=== PATIENT | female | born 1985 | race Caucasian/White ===

== ENCOUNTER → 2016-12-06 | Outpatient (CLI) | payer BC, OTHER ==
[~2016-12-06] MED LIST: PRENTAB26 PO
== END | disposition home or self-care (01) ==
LOC: C.PAPS 16:53
PROVIDERS: ATTEND Physician Assistant
DX: Z01.419 Encounter for gynecological examination (general) (routine) without abnormal findings (principal)

== ENCOUNTER → 2017-01-31 | Outpatient (CLI) | payer OTHER ==
[2017-01-31 15:40] LABS: BASO % 0.4 %; BASO ABS # 0.03 K/uL (0-0.2); COMPLETE YES; EOS % 0.2 %; HEMATOCRIT 38.3 % (37-47); LYMPH % 21.2 %; LYMPH ABS # 1.76 K/uL (1.2-3.4); MEAN CELL VOLUME 88.2 fL (80-100); MEAN CORPUSCULAR HEMOGLOBIN 30.6 pg (25-34); MEAN CORPUSCULAR HGB CONC 34.7 g/dl (32-36); MEAN PLATELET VOLUME 9.6 fL (7.4-10.4); MONO % 6.2 %; PLATELET COUNT 251 K/uL (130-400); RED BLOOD COUNT 4.34 M/uL (4.2-5.4); WHITE BLOOD COUNT 8.29 K/uL (4.8-10.8)
[2017-01-31 18:02] LABS: URINE APPEARANCE CLEAR (CLEAR); URINE BILIRUBIN NEG (NEG); URINE COLOR YELLOW; URINE NITRITE NEG (NEG); URINE SPECIFIC GRAVITY 1.013 (1.000-1.030); UROBILINOGEN NEG (NEG)
[2017-01-31 18:09] LABS: MANUAL MICROSCOPIC REQUIRED? NO; REVIEW REQ? NO
[2017-02-03 13:35] LABS: CHLAMYDIA TRACH RNA*** NOT DETECTED (NOT DETECTED); GC (NEIS GONORRHOEAE)RNA** NOT DETECTED (NOT DETECTED)
== END | disposition home or self-care (01) ==
LOC: C.LAB1850 14:50
PROVIDERS: ATTEND Obstetrics & Gynecology
DX: Z34.81 Encounter for supervision of other normal pregnancy, first trimester (principal)

== ENCOUNTER → 2017-02-22 | Outpatient (CLI) | payer OTHER ==
[2017-02-22 14:53] LABS: ALT/SGPT 17 U/L (12-78); AST/SGOT 11 U/L (15-37); BLOOD UREA NITROGEN 14 mg/dl (7-18); CALCIUM 8.7 mg/dl (8.5-10.1); CARBON DIOXIDE 25 mmol/L (21-32); CHLORIDE 108 mmol/L (98-107); GLUCOSE 75 mg/dl (70-99); POTASSIUM 3.8 mmol/L (3.5-5.1); SODIUM 140 mmol/L (136-145)
[2017-02-22 14:56] LABS: ALB/GLOB RATIO 1.2 (0.9-2); ALKALINE PHOSPHATASE 48 U/L (45-117)
[2017-02-22 15:02] LABS: URINE TOTAL PROTEIN < 5.0 mg/dl (0-11.9)
[2017-02-22 21:12] LABS: URINE COLLECTION TIME 24 HOURS; URINE TOTAL PROTEIN CALC < 80.0 mg/24 hr (0-149.1)
== END | disposition home or self-care (01) ==
LOC: C.LAB1850 12:26
PROVIDERS: ATTEND Obstetrics & Gynecology
DX: E72.12 Methylenetetrahydrofolate reductase deficiency (principal)

== ENCOUNTER → 2017-03-14 | Outpatient (CLI) | payer OTHER ==
[2017-03-14 18:41] LABS: GTGD 50 Grams
[2017-03-17 16:24] LABS: AFP CONCENTRATION 51.3 NG/ML; AFP MULTIPLE OF MEDIAN 1.26; AFPTS GESTATIONAL AGE 16.1 WEEKS; AFPTS INSULIN DEP DIABETIC? NO; AFPTS MATERNAL WT 112 LBS; ALPHA-FETOPROTEIN RACE CAUCASIAN=W; HISTORY OF NTD NO; REPEAT SAMPLE? NO
== END | disposition home or self-care (01) ==
LOC: C.LAB1850 15:35
PROVIDERS: ATTEND Obstetrics & Gynecology
DX: Z34.82 Encounter for supervision of other normal pregnancy, second trimester (principal)

== ENCOUNTER → 2017-06-06 | Outpatient (CLI) | payer OTHER ==
[2017-06-06 18:18] LABS: URINE APPEARANCE CLEAR (CLEAR); URINE BILIRUBIN NEG (NEG); URINE COLOR YELLOW; URINE EPITHELIAL CELL AUTO 20-30 /lpf (0-5); URINE NITRITE NEG (NEG); URINE PH 7.5 (4.5-7.5); URINE SPECIFIC GRAVITY 1.012 (1.000-1.030); UROBILINOGEN NEG (NEG)
[2017-06-06 18:21] LABS: MANUAL MICROSCOPIC REQUIRED? NO; REVIEW REQ? NO
== END | disposition home or self-care (01) ==
LOC: C.LABSPEC 17:52
PROVIDERS: ATTEND Obstetrics & Gynecology
DX: Z34.82 Encounter for supervision of other normal pregnancy, second trimester (principal)

== ENCOUNTER → 2017-08-16 | Outpatient (CLI) | payer OTHER ==
[2017-08-16 14:36] LABS: HEMATOCRIT 38.7 % (37-47); HEMOGLOBIN 13.8 g/dL (12.0-16.0); MEAN CELL VOLUME 88.4 fL (80-100); MEAN CORPUSCULAR HEMOGLOBIN 31.5 pg (25-34); MEAN PLATELET VOLUME 10.5 fL (7.4-10.4); PLATELET COUNT 236 K/uL (130-400); RED CELL DISTRIBUTION WIDTH CV 13.3 % (11.5-14.5); RED CELL DISTRIBUTION WIDTH SD 43.6 fL (36.4-46.3); WHITE BLOOD COUNT 7.58 K/uL (4.8-10.8)
[2017-08-16 14:53] LABS: MEAN CORPUSCULAR HGB CONC 35.7 g/dl (32-36)
[2017-08-16 14:59] LABS: ALBUMIN 2.8 gm/dl (3.4-5.0); ALKALINE PHOSPHATASE 162 U/L (45-117); ALT/SGPT 17 U/L (12-78); AST/SGOT 18 U/L (15-37); BLOOD UREA NITROGEN 13 mg/dl (7-18); CALCIUM 8.9 mg/dl (8.5-10.1); CARBON DIOXIDE 24 mmol/L (21-32); CREATININE 0.79 mg/dl (0.60-1.20); GLUCOSE 81 mg/dl (70-99); SODIUM 137 mmol/L (136-145); TOTAL PROTEIN 6.6 gm/dl (6.4-8.2)
== END | disposition home or self-care (01) ==
LOC: C.LAB1850 14:12
PROVIDERS: ATTEND Obstetrics & Gynecology
DX: O16.3 Unspecified maternal hypertension, third trimester (principal); Z34.83 Encounter for supervision of other normal pregnancy, third trimester

== ENCOUNTER 2017-08-17 08:32 | Inpatient (IN) | payer OTHER ==
[~2017-08-17] VITALS: Ht 152.4 cm; Wt 58.2 kg
[2017-08-17] MEDS ORDERED: LACTATED RINGER'S 1000ML 1,000 ML IV SCH (08:58)
[2017-08-17] MEDS ORDERED: LACTATED RINGER'S 1000ML 500 ML IV PRN ×2 (08:58→13:10)
[2017-08-17] MEDS ORDERED: LACTATED RINGER'S 1000ML 1,000 ML IV PRN (08:58)
[2017-08-17] MEDS ORDERED: OXYTOCIN 30 UNITS/500ML NSS IV PRN ×2 (09:15→14:15)
[2017-08-17 09:22] LABS: HEMATOCRIT 42.3 % (37-47); HEMOGLOBIN 14.7 g/dL (12.0-16.0); MEAN CORPUSCULAR HEMOGLOBIN 31.3 pg (25-34); MEAN CORPUSCULAR HGB CONC 34.8 g/dl (32-36); MEAN PLATELET VOLUME 10.6 fL (7.4-10.4); PLATELET COUNT 227 K/uL (130-400); RED CELL DISTRIBUTION WIDTH CV 13.5 % (11.5-14.5); RED CELL DISTRIBUTION WIDTH SD 44.1 fL (36.4-46.3); WHITE BLOOD COUNT 7.19 K/uL (4.8-10.8)
[2017-08-17] MEDS ORDERED: PENICILLIN G POTASSIUM IV 3 MU in DEXTROSE 5% 100ML 100 ML IV PRN (09:45)
[2017-08-17 09:54] LABS: ALT/SGPT 18 U/L (12-78); AST/SGOT 19 U/L (15-37); BLOOD UREA NITROGEN 11 mg/dl (7-18); CALCIUM 8.8 mg/dl (8.5-10.1); CARBON DIOXIDE 26 mmol/L (21-32); GLUCOSE 92 mg/dl (70-99); POTASSIUM 3.7 mmol/L (3.5-5.1); SODIUM 135 mmol/L (136-145)
[2017-08-17 09:57] LABS: ALKALINE PHOSPHATASE 167 U/L (45-117)
[2017-08-17] MEDS ORDERED: PENICILLIN G POTASSIUM IV 6 MU in DEXTROSE 5% 250ML 250 ML IV SCH (10:30)
[2017-08-17 11:26] VITALS: Ht 152.4 cm; Wt 58.2 kg
[2017-08-17] MEDS ORDERED: BUPIVACAINE 0.25% 30 ML VIAL ONE (12:31)
[2017-08-17] MEDS ORDERED: FENTANYL 2MCG/ML ROPIV 1.25MG/ML 100ML BAG EPI ONE (12:31)
[2017-08-17] MEDS ORDERED: EpHEDrine SULFATE INJ 50 MG/ML AMP ONE (12:31)
[2017-08-17] MEDS ORDERED: FENTANYL CITRATE INJ 50 MCG/1 ML 2 ML VIAL ONE (12:32)
[2017-08-17] MEDS ORDERED: NALOXONE HCL INJ 1 MG in SODIUM CHLORIDE 0.9% 1000ML 1,000 ML IV PRN (13:10)
[2017-08-17] MEDS ORDERED: NALOXONE HCL INJ 0.4 MG/1 ML VIAL/CARP IV PRN (13:15)
[2017-08-17] MEDS ORDERED: ONDANSETRON INJ 2 MG/ML 2 ML VIAL IV PRN (13:15)
[2017-08-17] MEDS ORDERED: DiphenhydrAMINE HCL 50 MG/ML VIAL IV PRN (13:15)
[2017-08-17] MEDS ORDERED: EpHEDrine SULFATE INJ 50 MG/ML AMP IV PRN (13:15)
[2017-08-17] MEDS ORDERED: FENTANYL 2MCG/ML ROPIV 1.25MG/ML 100ML BAG EPI PRN (13:15)
[2017-08-17] MEDS ORDERED: NALBUPHINE HCL INJ 10 MG/ML 1ML AMP IV PRN (13:15)
[2017-08-17] MEDS ORDERED: OXYTOCIN INJ 20 UNITS in LACTATED RINGER'S 1000ML 1,000 ML IV SCH (14:04)
--- NOTE | 2017-08-17 14:08 | Vaginal Delivery Summary ---
Vaginal Delivery Summary The patient dilated to complete and pushed to deliver a viable male Apgars 8 and 9 via over intact perineum. Mouth and nose bulb suctioned at the perineum. Shoulders and body delivered with ease. Infant vigorous and crying at . Cord clamped at 30 seconds of life. to maternal abdomen where the cord doubly clamped and then cut. Cervix and sulci intact. Placenta delivered spontaneously and intact, three-vessel cord. Hemostasis achieved with dilute Pitocin and uterine massage. EBL 300 cc's. Of note, placenta inspected and succenturiate lobe noted. Mother and baby stable in recovery.
[2017-08-17] MEDS ORDERED: OXYCODONE/ACETAMINOPHEN 5-325 TAB PO PRN (14:15)
[2017-08-17] MEDS ORDERED: ACETAMINOPHEN 325 MG TAB PO PRN (14:15)
[2017-08-17] MEDS ORDERED: SUPERCREAM 0.870 % 15GM JAR EXT PRN (14:15)
[2017-08-17] MEDS ORDERED: BENZOCAINE 20% AER SPR 82.5 GM CAN EXT PRN (14:15)
[2017-08-17] MEDS ORDERED: DIPHTHERIA/TETANUS/PERTUSSIS 0.5 ML SYR/VIAL IM. ONE (14:15)
[2017-08-17] MEDS ORDERED: HYDROCORTISONE ACETATE 25 MG SUPP PR PRN (14:15)
[2017-08-17] MEDS ORDERED: LANOLIN OINT EXT PRN (14:15)
[2017-08-17 17:30] VITALS: BP 130/83; PULSE 71; TEMP 36.6
--- NOTE | 2017-08-17 17:43 | Anesthesia Procedure Note ---
Anesthesia Epidural Removal Nt Date & Time Aug 17, 2017 at 17:43 Vital Signs Pain Intensity: 0.0 Notes Mental Status: alert / awake / arousable, participated in evaluation Nausea / Vomiting: adequately controlled Pain: adequately controlled Airway Patency, RR, SpO2: stable & adequate BP & HR: stable & adequate Hydration State: stable & adequate Neuraxial Anesthesia: was administered Anesthetic Complications: no major complications apparent, pt satisfied with anesthetic care Epidural: removed without complications, with tip intact
[2017-08-17] MEDS: IBUPROFEN 600 MG TAB PO PRN (18:41)
--- NOTE | 2017-08-17 19:16 | NUR ---
At 1730 pt. was admitted to room 439 via w/c from L&D. Patient had no c/o. Admission paperwork reviewed with mom and dad. Assessments complete. Santa rt. forearm WNL, no c/o pain. See assessments.
[2017-08-17 19:30] VITALS: BP_SYST 138; BP_SYST 144; BP_DIAS 94; BP_DIAS 95; PULSE 73; TEMP 36.4
[2017-08-17] MEDS: DOCUSATE SODIUM 100 MG CAP PO SCH (20:04)
[2017-08-17 23:15] VITALS: BP 128/83; PULSE 82; TEMP 36.9
[2017-08-18 04:20] VITALS: BP 113/78; PULSE 78; TEMP 36.3
--- NOTE | 2017-08-18 06:01 | OB/GYN Progress Note ---
DIESEL TECHNICIAN Progress Note Date of Service Aug 18, 2017. Subjective conversation w/ patient, conversation w/ family, physical exam, chart review, lab review Ambulation: ambulating normally Voiding: no voiding problems Passing Gas: No Diet Tolerance: Regular Diet Lochia: Moderate Feeding Type: Breast Feeding Pain: moderate pelvic pain and cramping with nursing Review of Systems Constitutional: No fever, No chills, No sweats Respiratory: No cough, No shortness of breath Cardiac: No chest pain, No edema, No palpitations Abdomen: No nausea, No vomiting, No diarrhea Female : + dysuria, No urinary frequency Objective Vital Signs Date Time Temp Pulse Resp B/P (MAP) Pulse Ox O2 Delivery O2 Flow Rate FiO2 08/18/17 04:20 36.3 78 20 113/78 (90) Room Air 08/17/17 23:15 36.9 82 18 128/83 (98) Room Air 08/17/17 23:15 Room Air 08/17/17 19:30 36.4 73 20 138/94 (109) Room Air 08/17/17 17:30 Room Air 08/17/17 17:30 36.6 71 20 130/83 (99) Room Air Physical Exam General Appearance: WELL-APPEARING, WD/WN, NO APPARENT DISTRESS Respiratory/Chest: chest non-tender, lungs clear, normal breath sounds, no respiratory distress, no accessory muscle use Cardiovascular: regular rate, rhythm, no edema, no murmur Abdomen: non tender, soft Fundus: Firm, Relation to Umbilicus (two digits below umbilicus ) Extremities: no pedal edema, no calf tenderness Laboratory Results Last 24 Hours Test 08/17/17 09:11 White Blood Count 7.19 K/uL Red Blood Count 4.70 M/uL Hemoglobin 14.7 g/dL Hematocrit 42.3 % Mean Corpuscular Volume 90.0 fL Mean Corpuscular Hemoglobin 31.3 pg Mean Corpuscular Hemoglobin Concent 34.8 g/dl RDW Standard Deviation 44.1 fL RDW Coefficient of Variation 13.5 % Platelet Count 227 K/uL Mean Platelet Volume 10.6 fL Sodium Level 135 mmol/L Potassium Level 3.7 mmol/L Chloride Level 104 mmol/L Carbon Dioxide Level 26 mmol/L Anion Gap 5.0 mmol/L Blood Urea Nitrogen 11 mg/dl Creatinine 0.80 mg/dl Estimated GFR () 113.9 Estimated GFR (Non- 98.2 BUN/Creatinine Ratio 13.3 Random Glucose 92 mg/dl Calcium Level 8.8 mg/dl Total Bilirubin 0.7 mg/dl Aspartate Amino Transf (AST/SGOT) 19 U/L Alanine Aminotransferase (ALT/SGPT) 18 U/L Alkaline Phosphatase 167 U/L Total Protein 7.0 gm/dl Albumin 3.0 gm/dl Globulin 4.0 gm/dl Albumin/Globulin Ratio 0.8 Assessment and Plan Post- Day Number: 1 Continue Routine Care: 31 yo female now 2 delivered vaginally on 08/17 13:51. Delivered at 38.3 gestation Pt is GBS+/O+/RI Patient describes moderate bleeding with nursing. Soaks 1 pad q 3 hours after nursing. Patients Hgb was 14.7 on admission. Continue routine care; 1. Monitor Lochia 2. Control pain-Tylenol/Ibuprofen PRN 3. Encourage Ambulation 4. Support Resident Physician Supervision Note: I was present with Dr. Pinzon during the history and exam. I discussed the case with the resident and agree with the findings and plan as documented in the note. Any exceptions or clarifications are listed here: stable, routine care. reassured patient about bleeding. her urinary burning is likely related to delivery and not uti, she will follow her symptoms. Documented By: Arlin Esposito
[2017-08-18] MEDS: IBUPROFEN 600 MG TAB PO PRN ×2 (09:09→15:41)
[2017-08-18] MEDS: DOCUSATE SODIUM 100 MG CAP PO SCH ×2 (09:09→19:39)
[2017-08-18 09:30] VITALS: BP 125/86; PULSE 73; TEMP 36.6
[2017-08-18 12:30] VITALS: BP 112/80; PULSE 84; TEMP 37
[2017-08-18 16:00] VITALS: BP 121/81; PULSE 80; TEMP 37.2; O2SAT 98
--- NOTE | 2017-08-18 21:01 | Discharge Instructions ---
Discharge Instructions Date of Service Aug 18, 2017. Admission Reason for Admission: Induction Discharge Discharge Diagnosis / Problem: vaginal delivery Discharge Goals Goal(s): Routine recovery after delivery Medications Continue Dispensed Medications: supercream, dermaplast, tucks, lansinoh Activity Recommendations Activity Limitations: per Instructions/Follow-up section . Instructions / Follow-Up Instructions / Follow-Up ACTIVITY RECOMMENDATIONS: * Gradual return to full activity over the next 2-3 weeks. * No lifting - nothing heavier than baby over the next 2-3 weeks. * Do not engage in vigorous exercise, sexual activity or sports until cleared by your physician. * Do not drive or operate any motorized equipment until cleared by your physician. * You may shower/bathe daily. MEDICATIONS: For discomfort or pain, you may use Acetaminophen (Tylenol), Ibuprofen (Advil), or Naproxen (Aleve) following the package directions. For constipation you may use Colace following the package directions. BREAST CARE: If you are not breast feeding: * Wear a supportive bra 24 hours a day for one to two weeks. * Avoid stimulating your breasts and nipples as much as possible during the first few weeks after delivery. * When taking a shower, have the warm water hit your back, not breasts. * When your breasts feel full, apply ice packs. Usually three to four times a day helps ease the discomfort. * Take a mild pain medication (Tylenol / Motrin) when you are uncomfortable. If breast feeding: * Use breast milk to lubricate nipples. Lansinoh cream may be used for sore nipples. You do not need to remove cream prior to breast feeding. If using a different brand of cream, check the label for directions regarding removal of cream prior to nursing. * Wear a supportive bra. * If having problems with breasts or breast feeding, call a test consultant or your health care provider. EPISIOTOMY CARE: After delivery, if you have an episiotomy (stitches), the following steps will ease discomfort and aid healing. * For the first 24 hours after delivery, place ice packs next to your episiotomy to help reduce swelling. * After the first 24 hour-period, sitz baths, either portable or in the tub, are suggested. A shower with a shower arm sprayed over the episiotomy may be comforting. * Ankita care should be done after each voiding and bowel movement. Squirt warm water from a plastic bottle over the perineum (region of the body between the anus and urinary opening) and pat dry. * Use Dermoplast to ease discomfort. Shake container. [place] directly over the episiotomy. Place a Tucks on a clean sanitary pad next to your episiotomy. SPECIAL CARE INSTRUCTIONS: When you are discharged from the hospital, it is important for you to follow the instructions listed below: * During the first week at home, you should be able to care for yourself and your baby. In addition, the usual light household activities are encouraged. * Limit your activities to the way you feel. Do not try to clean the house or move furniture. Be sensible. * If you actively engage in sports and have done so up until the time of your delivery, you may resume these activities as soon as you feel able. This may take up to one month or even longer. Use good judgment. * Continue to take your vitamins for at least six weeks after the of your baby. * Your diet need not be limited unless you were on a special diet before your delivery. Breast-feeding mothers need around 2500 calories per day and at least 64-80 ounces of fluid per day (8 to 10 glasses). * You should eat foods from the four major food groups. Crash diets or fad diets are to be avoided. Eating lean meats, fresh fruits and vegetables, low-fat dairy products, high fiber foods and a regular exercise program, will help you get back to your pre- weight without putting your health at risk. * Constipation is sometimes a problem after delivery. Take a mild laxative as needed. If breast feeding, Milk of Magnesia is acceptable to use. You may use a suppository or Fleets enema if no episiotomy. * A daily shower or tub bath is suggested. Be sure to thoroughly and gently dry the perineum. * A bloody vaginal discharge will usually continue until around four weeks post . A small amount of bleeding may continue for as long as six weeks. Vaginal discharge changes from the bright red bleeding after delivery to pink then brownish and finally yellowish-pink before becoming white and disappearing. * Bleeding may increase with activity. Your first period may come in 4-8 weeks. If you are breast feeding, your period may be delayed even longer. * [place] (sex) can begin whenever both you and your partner feel comfortable and do not have any form of genital infection. It is recommended that you wait at least six weeks for internal and external healing to occur. If you have questions, please talk to your health care practitioner. A condom should be used to prevent infection and . * Foreplay, gentle intercourse and lubrication is very important the first several times to prevent pain. A water-based lubricant such as K-Y jelly or Astroglide may be used. * If you have RH negative blood and your baby is RH positive, you will receive RHOGAM by injection prior to discharge. The nurse will give you a card to keep with you that has the date and place that you received RHOGAM after delivery. * During your care, you had a Rubella screen done to check for the presence of rubella antibodies in your blood. If your test was negative, you will receive a Rubella vaccine prior to discharge. This vaccine may cause a fever, soreness at the injection site and flu-like symptoms. If these symptoms persist, notify your health care practitioner. is not advised for one month after a Rubella vaccine. * Verbalizes understanding of car seat law as reviewed with patient nursing. * Car Seat hand-out given and reviewed with patient by nursing. * Shaken baby information reviewed with patient by nursing. Call you doctor if: * Heavy bleeding (saturating several pads an hour) or passing clots the size of your fist. * A fever >101 degrees F (38.3 degrees C) on two occasions four hours apart and /or chills. * Unusual pain in the pelvic or vaginal areas. * "Baby Blues" lasting longer than two weeks. If you have any questions or concerns, call your health care practitioner at . FOLLOW UP VISIT: * Please call the office at to schedule a 6 week examination. It is important you keep this appointment. It is important for you to make arrangements for either yearly or twice yearly check-ups thereafter. Current Hospital Diet Patient's current hospital diet: Regular OB Diet Discharge Diet Recommended Diet: Regular OB Diet Pending Studies Studies pending at discharge: no Medical Emergencies . Who to Call and When: Medical Emergencies: If at any time you feel your situation is an emergency, please call 911 immediately. . Non-Emergent Contact Non-Emergency issues call your: Manager Hospitality . . "Provider Documentation" section prepared by Scott Pinzon. . VTE Core Measure Inpt VTE Proph given/why not?: Treatment not indicated
[2017-08-18 23:45] VITALS: BP 143/94; PULSE 81; TEMP 36.6
[2017-08-19 04:00] VITALS: BP 139/89
--- NOTE | 2017-08-19 07:20 | NUR ---
dr. harrell aware of blood pressures
[2017-08-19] MEDS: DOCUSATE SODIUM 100 MG CAP PO SCH (08:05)
[2017-08-19 08:10] VITALS: BP_SYST 145; BP_DIAS 91; BP_DIAS 99; PULSE 101; TEMP 36.6; O2SAT 98
--- NOTE | 2017-08-19 08:33 | OB/GYN Progress Note ---
BROOD HATCHERY MANAGER Progress Note Date of Service Aug 19, 2017. Subjective conversation w/ patient, physical exam, chart review, lab review Ambulation: ambulating normally Voiding: no voiding problems Passing Gas: Yes Diet Tolerance: Regular Diet Lochia: Small Feeding Type: Breast Feeding Pain: moderate cramping with feeding Review of Systems Constitutional: No fever, No chills, No sweats Respiratory: No cough, No sputum, No shortness of breath Cardiac: No chest pain, No palpitations Abdomen: No pain, No nausea, No vomiting Female : + dysuria Objective Vital Signs Date Time Temp Pulse Resp B/P (MAP) Pulse Ox O2 Delivery O2 Flow Rate FiO2 08/19/17 04:00 139/89 (106) 08/18/17 23:45 Room Air 08/18/17 23:45 36.6 81 18 143/94 (110) Room Air 08/18/17 16:00 37.2 80 18 121/81 (94) 98 Room Air 08/18/17 15:30 Room Air 08/18/17 12:30 37.0 84 18 112/80 (91) Room Air 08/18/17 09:30 36.6 73 18 125/86 (99) Room Air 08/18/17 09:30 Room Air Physical Exam General Appearance: WELL-APPEARING, WD/WN, NO APPARENT DISTRESS Respiratory/Chest: chest non-tender, lungs clear Cardiovascular: regular rate, rhythm, no murmur Abdomen: normal bowel sounds, non tender Fundus: Firm, Relation to Umbilicus (2 digit below ) Extremities: no pedal edema, no calf tenderness Assessment and Plan Post- Day Number: 2 Continue Routine Care: Resident Physician Supervision Note: I interviewed and examined the patient. Discussed with Dr. Pinzon and agree with findings and plan as documented in the note. Any exceptions or clarifications are listed here: Doing well. No s/s of pet. Had a couple of elevated pressures yesterday. If pressures look ok this am, then plan d/c. Instructions given. Documented By: Lesvia Ash 31 f now 2 Delivered vaginally on 08/17 13:51 Born @ 38.2 wks Pt is GBS+/O+/RI Pt is doing clinically well. Reports so moderate cramping with feeding, but minimal bleeding. Vitals were reviewed. BP overnight was elevated (143/94, 139/89). Otherwise WNL. ROS negative for signs of preeclampsia. Plan; 1. Patient ready for DC this afternoon. And will follow up closely within a week in the clinic for elevated BP. 2. Continue to monitor serial BP until DC, encourage ambulation, support breast feeding
[2017-08-19] MEDS: IBUPROFEN 600 MG TAB PO PRN (09:20)
[2017-08-19 11:45] VITALS: BP_SYST 122; BP_SYST 138; BP_DIAS 84; BP_DIAS 98
[2017-08-19 13:50] VITALS: BP 157/109
[2017-08-19 14:05] VITALS: BP_SYST 140; BP_SYST 156; BP_DIAS 102; BP_DIAS 98
[2017-08-19 15:36] VITALS: BP_DIAS 109; PULSE 101; TEMP 36.6
--- NOTE | 2017-08-19 15:46 | NUR ---
Mother verbalized discharge understanding. Mother down to lobby in wheelchair with and
== END 2017-08-19 15:46 | disposition home or self-care (01) | DRG 775 ==
LOC: C.LD 08:32 → C.OBG 17:43
PROVIDERS: ADMIT Obstetrics & Gynecology; ATTEND Obstetrics & Gynecology
PROC: 3E033VJ Introduction of Other Hormone into Peripheral Vein, Percutaneous Approach (ICD-10-PCS; principal; 2017-08-17)
PROC: 10E0XZZ Delivery of Products of Conception, External Approach (ICD-10-PCS; principal; 2017-08-17)
DX: O13.4 Gestational [pregnancy-induced] hypertension without significant proteinuria, complicating childbirth (principal); Z37.9 Outcome of delivery, unspecified